=== PATIENT | female | born 1980 | race African-American/Black ===

== ENCOUNTER 2016-07-25 12:53 | Inpatient (IN) | payer MEDICAID, OTHER ==
[~2016-07-25] VITALS: Ht 162.6 cm; Wt 113.0 kg
[2016-07-25 13:48] LABS: BASOPHILS % (AUTO) 0.5 % (0.0-2.0); EOSINOPHILS % (AUTO) 4.3 % (1.0-6.0); HEMATOCRIT 44.6 % (36-46); HEMOGLOBIN 14.2 g/dL (12.0-16.0); LYMPHOCYTES # (AUTO) 2.7 K/uL (1.0-4.8); LYMPHOCYTES % (AUTO) 22.6 % (22.0-44.0); MEAN CORPUSCULAR HGB CONC 31.9 G/dL (31.0-37.0); MEAN CORPUSCULAR VOLUME 82 fL (80-100); MONOCYTES # (AUTO) 0.7 K/uL (0.1-1.0); MONOCYTES % (AUTO) 6.3 % (2.0-9.0); NEUTROPHILS # (AUTO) 7.8 K/uL (1.8-7.7); NEUTROPHILS % (AUTO) 66.3 % (40.0-70.0); PLATELET COUNT (AUTO) 316 K/uL (150-450); RED BLOOD CELL COUNT(AUTO) 5.47 MIL/uL (4.00-5.20); RED CELL DISTRIBUTION WIDTH 14.7 % (11.5-14.5); WHITE BLOOD COUNT (AUTO) 11.8 K/uL (4.5-11.0)
[2016-07-25 13:56] LABS: ANION GAP 7 mmol/L (8-16); CALCIUM, TOTAL 9.1 mg/dL (8.8-10.5); CARBON DIOXIDE 30 mmol/L (22-29); CHLORIDE 101 mmol/L (98-107); GLOMERULAR FILTR. RATE CALC > 60 mL/min (>60); POTASSIUM 4.3 mmol/L (3.5-5.1); SODIUM SERUM 138 mmol/L (136-145); UREA NITROGEN, BLOOD 12 mg/dL (7-18)
[2016-07-25 14:02] LABS: ALANINE AMINOTRANSFERASE 24 U/L (12-78); ALBUMIN 3.5 g/dL (3.4-5.0); ASPARTATE AMINOTRANSFERASE 11 U/L (15-37); BILIRUBIN,TOTAL 0.2 mg/dL (0.1-1.0); TOTAL PROTEIN, SERUM 8.2 g/dL (6.4-8.2)
[2016-07-25] MEDS ORDERED: HALOPERIDOL 5 MG TABLET PO PRN (15:15)
[2016-07-25] MEDS ORDERED: ZOLPIDEM TARTRATE 10 MG TABLET PO PRN (15:15)
[2016-07-25 18:54] VITALS: BP 114/80
[2016-07-25] MEDS: LORazepam 2 MG TABLET PO PRN (20:55)
[2016-07-26 06:10] VITALS: BP 112/90
[2016-07-26] MEDS ORDERED: FLUTICASONE PROPIONATE 50 MCG/SPRAY 16 GM NASAL SPRAY NASAL PRN (08:00)
[2016-07-26 08:42] VITALS: BP 118/70
[2016-07-26] MEDS ORDERED: IBUPROFEN 400 MG TABLET PO PRN (09:30)
[2016-07-26] MEDS ORDERED: ACETAMINOPHEN 325 MG TABLET PO PRN (09:30)
[2016-07-26 16:00] VITALS: BP 137/84
[2016-07-26] MEDS: LORazepam 2 MG TABLET PO PRN (20:51)
[2016-07-27 08:33] VITALS: BP 110/73
[2016-07-27] MEDS: LORazepam 2 MG TABLET PO PRN ×2 (08:54→20:14)
[2016-07-27] MEDS ORDERED: FLUoxetine HCL 20 MG CAPSULE PO SCH (09:00)
[2016-07-27 16:30] VITALS: BP 113/77
[2016-07-27] MEDS ORDERED: ONDANSETRON HCL 4 MG TABLET PO PRN (16:30)
[2016-07-28 05:06] VITALS: BP 134/78
[2016-07-28 08:27] LABS: HEMOGLOBIN A1C 5.9 % (4.5-6.2)
[2016-07-28 08:38] VITALS: BP 130/69
[2016-07-28 08:43] LABS: CHOL/HDL RATIO 8.2 (3.9-5.7); THYROID STIMULATING HORMONE 2.11 uIU/mL (0.36-3.74)
[2016-07-28 16:16] VITALS: BP 130/74
[2016-07-28] MEDS: LORazepam 2 MG TABLET PO PRN (18:26)
[2016-07-28 20:15] VITALS: BP 129/80
[2016-07-28] MEDS ORDERED: SIMVASTATIN 10 MG TABLET PO SCH (21:00)
[2016-07-29 16:23] VITALS: BP 124/68
[2016-07-29] MEDS: LORazepam 2 MG TABLET PO PRN (18:08)
[2016-07-29] MEDS ORDERED: EZETIMIBE 10 MG TABLET PO SCH (21:00)
[2016-07-30 07:05] VITALS: BP 135/72
[2016-07-30] MEDS ORDERED: CHOLECALCIFEROL (VIT D3) 400 UNITS TABLET PO SCH (09:00)
[2016-07-30] MEDS ORDERED: EZET10 PO (09:17)
[2016-07-30] MEDS ORDERED: VITAD400 PO (09:17)
== END 2016-07-30 12:21 | disposition home or self-care (01) | DRG 753 ==
LOC: EMS 12:55 → B3A 15:18
PROVIDERS: ADMIT Psychiatry & Neurology Psychiatry; ATTEND Psychiatry & Neurology Psychiatry
DX: F31.13 Bipolar disorder, current episode manic without psychotic features, severe (principal); R45.850 Homicidal ideations; E78.00 Pure hypercholesterolemia, unspecified; F41.9 Anxiety disorder, unspecified; J30.9 Allergic rhinitis, unspecified; E78.5 Hyperlipidemia, unspecified; E78.01 Familial hypercholesterolemia; I51.9 Heart disease, unspecified; Z88.8 Allergy status to other drugs, medicaments and biological substances; Z87.891 Personal history of nicotine dependence; Z62.819 Personal history of unspecified abuse in childhood; Z87.820 Personal history of traumatic brain injury
CPT/HCPCS: 70450; 83036; 84443; 99285; G0480

== ENCOUNTER 2017-06-15 16:13 | Emergency (ER) | payer MEDICAID, OTHER ==
[~2017-06-15] VITALS: Ht 160 cm; Wt 113.2 kg
[~2017-06-15 16:13] MED LIST: EZET10 PO; VITAD400 PO
[2017-06-15] MEDS ORDERED: CIME300T PO (18:19)
[2017-06-15] MEDS ORDERED: VITAD50000 PO (18:23)
[2017-06-15 18:26] LABS: BASOPHILS % (AUTO) 0.4 % (0.0-2.0); EOSINOPHILS % (AUTO) 2.2 % (1.0-6.0); HEMATOCRIT 41.4 % (36-46); HEMOGLOBIN 13.5 g/dL (12.0-16.0); LYMPHOCYTES # (AUTO) 2.4 K/uL (1.0-4.8); LYMPHOCYTES % (AUTO) 21.3 % (22.0-44.0); MEAN CORPUSCULAR HEMOGLOBIN 26.7 pg (26.0-34.0); MEAN CORPUSCULAR HGB CONC 32.7 G/dL (31.0-37.0); MEAN CORPUSCULAR VOLUME 82 fL (80-100); MONOCYTES # (AUTO) 0.7 K/uL (0.1-1.0); MONOCYTES % (AUTO) 6.3 % (2.0-9.0); NEUTROPHILS # (AUTO) 7.9 K/uL (1.8-7.7); NEUTROPHILS % (AUTO) 69.8 % (40.0-70.0); PLATELET COUNT (AUTO) 314 K/uL (150-450); RED BLOOD CELL COUNT(AUTO) 5.07 MIL/uL (4.00-5.20); RED CELL DISTRIBUTION WIDTH 15.3 % (11.5-14.5)
[2017-06-15 18:30] LABS: AMPHET/METH SCREEN,URINE NEGATIVE (NEGATIVE); BARBITURATE SCREEN, URINE NEGATIVE (NEGATIVE); BENZODIAZEPINES SCREEN,URINE NEGATIVE (NEGATIVE); CANNABINOID SCREEN,URINE NEGATIVE (NEGATIVE); COCAINE SCREEN,URINE NEGATIVE (NEGATIVE); METHADONE SCREEN, URINE NEGATIVE (NEGATIVE); OPIATE SCREEN,URINE NEGATIVE (NEGATIVE)
[2017-06-15 18:31] LABS: PHENCYCLIDINE SCREEN,URINE NEGATIVE (NEGATIVE)
[2017-06-15 18:40] LABS: ANION GAP 5 mmol/L (8-16); CALCIUM, TOTAL 9.5 mg/dL (8.8-10.5); CARBON DIOXIDE 31 mmol/L (22-29); CHLORIDE 100 mmol/L (98-107); CREATININE 0.84 mg/dL (0.60-1.30); GLOMERULAR FILTR. RATE CALC > 60 mL/min (>60); GLUCOSE,RANDOM 106 mg/dL (70-110); POTASSIUM 3.7 mmol/L (3.5-5.1); SODIUM SERUM 136 mmol/L (136-145); UREA NITROGEN, BLOOD 17 mg/dL (7-18)
[2017-06-15 18:47] LABS: ALANINE AMINOTRANSFERASE 20 U/L (12-78); ALBUMIN 3.5 g/dL (3.4-5.0); ALKALINE PHOSPHATASE 73 U/L (46-116); ASPARTATE AMINOTRANSFERASE 12 U/L (15-37); BILIRUBIN,TOTAL 0.2 mg/dL (0.1-1.0)
[2017-06-15 18:53] VITALS: BP 119/56
[2017-06-15] MEDS ORDERED: MAG HYDROX/AL HYDROX/SIMETH 30 ML SUSP UDCUP PO ONE (20:30)
== END 2017-06-15 20:43 | disposition home or self-care (01) ==
LOC: EMS 16:20
DX: F41.9 Anxiety disorder, unspecified (principal); F32.9 Major depressive disorder, single episode, unspecified; E78.00 Pure hypercholesterolemia, unspecified; Z87.891 Personal history of nicotine dependence; Z88.5 Allergy status to narcotic agent; Z88.8 Allergy status to other drugs, medicaments and biological substances
CPT/HCPCS: 36415; 80053; 80307; 85025; 99285; G0480

== ENCOUNTER 2017-12-22 04:23 | Inpatient (IN) | payer MEDICAID, OTHER ==
[~2017-12-22] VITALS: Ht 162.6 cm; Wt 115.5 kg
[~2017-12-22 04:23] MED LIST changes: +CIME300T PO; +GABA300C PO; +PARO10OR3 PO; -VITAD400 PO
[2017-12-22 06:00] LABS: BASOPHILS % (AUTO) 0.6 % (0.0-2.0); EOSINOPHILS % (AUTO) 3.8 % (1.0-6.0); HEMATOCRIT 38.6 % (36-46); HEMOGLOBIN 12.8 g/dL (12.0-16.0); LYMPHOCYTES # (AUTO) 3.4 K/uL (1.0-4.8); LYMPHOCYTES % (AUTO) 27.7 % (22.0-44.0); MEAN CORPUSCULAR HEMOGLOBIN 26.6 pg (26.0-34.0); MEAN CORPUSCULAR HGB CONC 33.1 G/dL (31.0-37.0); MEAN CORPUSCULAR VOLUME 80 fL (80-100); MONOCYTES # (AUTO) 1.1 K/uL (0.1-1.0); MONOCYTES % (AUTO) 8.8 % (2.0-9.0); NEUTROPHILS # (AUTO) 7.2 K/uL (1.8-7.7); NEUTROPHILS % (AUTO) 59.1 % (40.0-70.0); PLATELET COUNT (AUTO) 292 K/uL (150-450); RED BLOOD CELL COUNT(AUTO) 4.81 MIL/uL (4.00-5.20); RED CELL DISTRIBUTION WIDTH 15.1 % (11.5-14.5)
[2017-12-22 06:10] LABS: ANION GAP 6 mmol/L (8-16); CALCIUM, TOTAL 9.2 mg/dL (8.8-10.5); CARBON DIOXIDE 30 mmol/L (22-29); CHLORIDE 101 mmol/L (98-107); CREATININE 0.77 mg/dL (0.60-1.30); GLOMERULAR FILTR. RATE CALC > 60 mL/min (>60); GLUCOSE,RANDOM 107 mg/dL (70-110); POTASSIUM 3.4 mmol/L (3.5-5.1); SODIUM SERUM 137 mmol/L (136-145); UREA NITROGEN, BLOOD 11 mg/dL (7-18)
[2017-12-22 06:17] LABS: ALANINE AMINOTRANSFERASE 19 U/L (12-78); ALBUMIN 3.4 g/dL (3.4-5.0); ALKALINE PHOSPHATASE 62 U/L (46-116); ASPARTATE AMINOTRANSFERASE 11 U/L (15-37); BILIRUBIN,TOTAL 0.2 mg/dL (0.1-1.0); TOTAL PROTEIN, SERUM 7.4 g/dL (6.4-8.2)
[2017-12-22] MEDS ORDERED: ACETAMINOPHEN 325 MG TABLET PO PRN (10:00)
[2017-12-22] MEDS ORDERED: ZOLPIDEM TARTRATE 10 MG TABLET PO PRN (10:00)
[2017-12-22] MEDS ORDERED: IBUPROFEN 400 MG TABLET PO PRN ×2 (10:00→13:15)
[2017-12-22] MEDS ORDERED: HALOPERIDOL 5 MG TABLET PO PRN (10:00)
[2017-12-22] MEDS ORDERED: LORazepam 2 MG TABLET PO PRN (10:00)
[2017-12-22] MEDS ORDERED: PB/HYOSCY/ATR/SCOP/LIDO/MAALOX 55 ML BOTTLE PO ONE (10:15)
[2017-12-22] MEDS ORDERED: MAGNESIUM CITRATE 300 ML ORAL SOLUTION PO ONE (10:15)
[2017-12-22] MEDS ORDERED: ALBUTEROL SULFATE HFA 90 MCG/PUFF 8 GM INHALER IH PRN (13:15)
[2017-12-22] MEDS ORDERED: NICOTINE 14 MG/24 HOUR PATCH TD PRN (13:15)
[2017-12-22] MEDS ORDERED: LOPERAMIDE HCL 2 MG CAPSULE PO PRN (13:15)
[2017-12-22] MEDS ORDERED: GuaiFENesin/D-METHORPHAN [SUGAR-FREE] 200-20MG/10 ML SYRUP UDCUP PO PRN (13:15)
[2017-12-22] MEDS ORDERED: CloNIDine HCL 0.1 MG TABLET PO PRN (13:15)
[2017-12-22] MEDS ORDERED: MAGNESIUM HYDROXIDE SUSPENSION 30 ML UDCUP PO PRN (13:15)
[2017-12-22] MEDS ORDERED: DOCUSATE SODIUM 100 MG CAPSULE PO PRN (13:15)
[2017-12-22] MEDS ORDERED: MAG HYDROX/AL HYDROX/SIMETH ES 30 ML SUSPENSION UDCUP PO PRN (13:15)
[2017-12-22] MEDS ORDERED: ONDANSETRON HCL 4 MG TABLET PO PRN (13:15)
[2017-12-22] MEDS ORDERED: HYDROCODONE/ACETAMINOPHEN 10-325 MG TABLET PO PRN (13:15)
[2017-12-22] MEDS ORDERED: PETROLATUM,WHITE 71 GM JELLY TP PRN (13:15)
[2017-12-22 16:07] VITALS: BP 129/77
[2017-12-22] MEDS ORDERED: POTASSIUM CHLORIDE 20 MEQ ER TABLET PO ONE (17:00)
[2017-12-22 22:02] VITALS: BP 107/60
[2017-12-23 05:51] VITALS: BP 110/68
[2017-12-23 08:12] VITALS: BP 104/70
[2017-12-23] MEDS: CIMETIDINE 300 MG TABLET PO SCH ×2 (09:45→16:29)
[2017-12-23] MEDS ORDERED: EZETIMIBE 10 MG TABLET PO SCH (09:45)
[2017-12-23] MEDS ORDERED: FLUO-191 PO (11:45)
[2017-12-23] MEDS ORDERED: GABA-531 PO (11:45)
[2017-12-23] MEDS: GABAPENTIN 300 MG CAPSULE PO SCH ×2 (12:55→16:28)
[2017-12-23] MEDS ORDERED: CIMETIDINE 300 MG TABLET PO SCH (17:00)
[2017-12-24] MEDS ORDERED: FLUoxetine HCL 20 MG CAPSULE PO SCH (09:00)
[2017-12-24] MEDS ORDERED: EZETIMIBE 10 MG TABLET PO SCH (09:00)
== END 2017-12-23 16:45 | disposition home or self-care (01) | DRG 753 ==
LOC: EMS 04:35 → B2S 10:26
DX: F31.4 Bipolar disorder, current episode depressed, severe, without psychotic features (principal); R45.851 Suicidal ideations; E55.9 Vitamin D deficiency, unspecified; E78.00 Pure hypercholesterolemia, unspecified; E78.5 Hyperlipidemia, unspecified; F17.210 Nicotine dependence, cigarettes, uncomplicated; F41.9 Anxiety disorder, unspecified; K21.9 Gastro-esophageal reflux disease without esophagitis; K59.00 Constipation, unspecified; Z59.0 Homelessness; Z79.899 Other long term (current) drug therapy; M54.9 Dorsalgia, unspecified; M48.00 Spinal stenosis, site unspecified
CPT/HCPCS: 99285; G0480